=== PATIENT | male | born 1975 | race Caucasian/White ===

== ENCOUNTER 2016-05-17 09:09 | Inpatient (IN) | payer BC ==
--- NOTE | ~2016-05-17 | EEG ---
Electroencephalogram [address] [place]. [address] NAME: MARVEL CHARLES : 71 STATUS : DIS IN PAT#: [id number] AGE: 41 ADM/REG DATE : 05/17/16 MR#: [id number] REPORT SERV DATE: 05/22/16 DICTATED BY: NATHANIEL GOEL DATE: 05/22/16 REPORT STATUS : Draft TRANSCRIBED BY: ALYX DATE: 05/22/16 REQUESTING PHYSICIAN: 1. Emergency room physician. 2. Nathaniel Goel MD. INTERPRETING PHYSICIAN: Nathaniel Goel MD. REASON FOR EEG: Episode of ? syncope, unresponsiveness followed by left-sided weakness. 23 surface electrodes, 10-20 international placement was used. Video monitoring was utilized. Photic stimulation was performed. The background activity consisted of very well organized goysrzub-sk-mvodgl voltage 10-11 cycles per second located in the posterior head regions. This alpha range activity attenuated well with the eye opening maneuvers. No abnormal paroxysmal activity was seen during the study. The patient's radiation monitor showed sinus rhythm, rate of approximately 76 to 80 beats per minute. Photic stimulation did not bring out additional abnormalities. IMPRESSION: THIS IS A NORMAL AWAKE AND DROWSY EEG. CLINICAL CORRELATION IS RECOMMENDED. JAYDE/ALYX Nathaniel Goel MD / [id number] CC: Divine Tierney II, M.D.
--- NOTE | ~2016-05-17 | CN ---
Consultation Report [facility] [address] [place]. [address] NAME: MARVEL CHARLES : 71 STATUS : ADM IN PAT#: [id number] AGE: 41 ADM/REG DATE : 05/17/16 MR#: [id number] REPORT SERV DATE: 05/17/16 DICTATED BY: NATHANIEL GOEL DATE: 05/17/16 REPORT STATUS : Draft TRANSCRIBED BY: MODBessie DATE: 05/17/16 NEUROLOGICAL EVALUATION-CODE STROKE EMERGENCY ROOM DATE OF CONSULTATION: 05/17/2016 REQUESTING PHYSICIAN: Dr. Carranza from emergency room. HISTORY OF PRESENT ILLNESS: This is a 41-year-old, previously healthy male with no prior history of TIA or CVA, who presented to the emergency room with history of two episodes of loss of consciousness, which occurred at 6 o'clock this morning. The patient, as per his , was found slightly confused on the floor of his bathroom. Prior to that, as per the patient's children, who informed their mother the patient had previous episode of falling. The disorientation lasted couple of seconds. The patient was taken to the emergency room. While in the emergency room, it was noted by the emergency room nurse that the patient had difficulty moving his left arm and left leg. The patient denied numbness or tingling involving his face or extremities. Denied history of previous CVA or TIA. There is no history of seizures. The patient has a strong family history of early of his father who of massive heart attack? three years ago. The patient was followed by Cardiology following the episode of his father's for the evaluation of chest discomfort. His workup at that time was negative. The patient's records from indicated he was hospitalized in 2012 for possible prostatitis and history of hemorrhoids. The patient however denied having any history of bleeding. The patient was taken to the CT on an emergency basis. CT scan of the head was normal. CTA of the aortic arch and vasculature in the neck and brain was normal. The patient's NIH stroke scale was 4 with motor dysfunction affecting left arm and left leg. No evidence of speech, sensory deficits, or cerebellar deficits noted. The risks and side effects of the tPA were explained to the patient and the family. The patient's symptoms started at 6 o'clock in the morning; however, his weakness did not develop until he presented to the emergency room. We requested permission from the patient who was conscious, alert, and was able to give informed consent. I requested his permission for tPA use. The side effects which included increased risk of bleeding internally in the brain were explained to the patient. The patient was given a test dose 0.9 mg with no adverse affects, started on infusion of tPA. The EEG was done to rule out presence of seizures or post-seizure changes- postictal changes. On my inspection, the EEG appeared within normal range. The inclusion and exclusion criteria were reviewed prior to offering and considering tPA as a treatment for this patient. MEDICATIONS: None as per patient. ALLERGIES: PENICILLIN. FAMILY HISTORY: As mentioned above. The patient's father at age 47 of a massive heart attack. Consultation Report [id number] [facility] [place]. [address] NAME: MARVEL CHARLES : 71 STATUS : ADM IN [facility]#: [id number] AGE: 41 ADM/REG DATE : 05/17/16 MR#: [id number] REPORT SERV DATE: 05/17/16 DICTATED BY: NATHANIEL GOEL DATE: 05/17/16 REPORT STATUS : Draft TRANSCRIBED BY: ALYX DATE: 05/17/16 REVIEW OF SYSTEMS: The patient denied having recent problems with weakness, numbness difficulty, with his speech, chewing, and swallowing. Denied history of headache or dizziness. Denies history of head trauma. 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 The rest of the review of system was negative. 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 Denied history of smoking or use of alcohol. He is and has several children. PHYSICAL EXAMINATION: VITAL SIGNS: Blood pressure 110/70, pulse was 78, respirations 14, and temperature afebrile. HEAD AND NECK: Showed him to be normocephalic. There was no evidence of trauma. Auscultation of the neck showed no evidence of bruits. EYE: Sclerae were not icteric. Conjunctiva was pink. ENT: Showed slightly small airway, however, the Mallampati 2-3 was the grading. NECK: Supple. There was no Kernig or Brudzinski. Cervical range of motion was not impaired. CHEST: Symmetrical. LUNGS: Clear to auscultation. HEART: Showed regular S1, S2. No S3, S4, or gallops were noted. ABDOMEN: Soft, nontender. There was no organomegaly. EXTREMITIES: Show no clubbing or cyanosis. There was no peripheral edema. Peripheral pulses were normal. SKIN: Clear. No ecchymosis, petechiae, hemorrhages, or abnormal pigmentation noted. NEUROLOGICAL: The patient was alert, oriented to self, time, and place. His speech was fluent. There was no evidence of aphasia or dysarthria. Thought content was appropriate. Mood was appropriate. The patient appeared mildly anxious. No deficits on memory testing, were observed. CRANIAL NERVES: Two through 12. Visual nesbitt to confrontation were intact. FUNDUSCOPIC: Showed no evidence of papilledema, hemorrhages, or exudates. Extraocular movements were full. There was no nystagmus. No limitation of upward or downward gaze was noted. No facial asymmetry was noted on examination. Hearing was intact bilaterally. Lower cranial nerves were intact. Tongue was midline. No atrophy or fibrillations were noted. Palate elevated symmetrically. Sternocleidomastoid muscles appeared normal. The patient however had decreased shoulder shrug on the left. MOTOR: The patient's tone initially appeared flaccid in the left arm and normal in the left leg. After patient received tPA, the tone improved in the left arm. The patient was able to move distal fingers in the left hand. Strength initially was 3/5 in the left arm and 3- /5 in the left leg. Deep tendon reflexes were symmetrical, 1+/2 throughout including ankle jerks. Babinski signs were not elicitable. SENSORY: Showed no deficits on pinprick, light touch, temperature, and vibration. CEREBELLAR: On the left was normal; on the right, difficult to test. The patient however did not have truncal ataxia on sitting. Gait could not be tested at this time. Consultation Report [address] [place]. [address] NAME: MARVEL CHARLES : 71 STATUS : ADM IN [facility]#: [id number] AGE: 41 ADM/REG DATE : 05/17/16 MR#: [id number] REPORT SERV DATE: 05/17/16 DICTATED BY: NATHANIEL GOEL DATE: 05/17/16 REPORT STATUS : Draft TRANSCRIBED BY: MODL DATE: 05/17/16 IMPRESSION: Acute neurological deficit, most likely related to early stroke. The patient has strong family history of massive myocardial infarction at the early age-the patient has no risk factors otherwise for cerebrovascular accident; however, would recommend to proceed with a workup of cerebrovascular accident in the young patient. This workup should include hypercoagulable state, Cardiology evaluation, and transesophageal echo. 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 Follow post tPA orders, monitor for signs of bleeding, repeat imaging studies in 24 hours, start aspirin in 24 hours after the tPA was administered. Start statins now. The patient is able to swallow, continue low-cholesterol diet, lipid profile, and other orders to follow as per stroke protocol. Monitor for recurrent cardiac arrhythmias. Additional orders will follow according to the patient's progress and imaging studies. Thank you for allowing us to see participate in this patient's care. The patient will be provided with a stroke education and family counseling if needed. JAYDE/ALYX Nathaniel Goel MD / [id number] CC: Divine Boland II, M.D.
--- NOTE | ~2016-05-17 | DS ---
Discharge Summary [facility] [address] [place]. [address] NAME: MARVEL CHARLES : 71 STATUS : DIS IN PAT#: [id number] AGE: 41 ADM/REG DATE : 05/17/16 MR#: [id number] REPORT SERV DATE: 05/20/16 DICTATED BY: SALINAS GOINS DATE: 05/19/16 REPORT STATUS : Draft TRANSCRIBED BY: MODL DATE: 05/19/16 ADMISSION DATE: 05/17/2016 DISCHARGE DATE: 05/19/2016 REASON FOR ADMISSION: This is a 41-year-old patient brought into the emergency room, that had two episodes of loss of consciousness which occurred around 5 o'clock in the morning. The patient was found by his on the bathroom floor and was slightly confused. The patient had no recall of what he was doing in the bathroom or what had happened. He apparently had loss of consciousness. The disorientation lasted a couple of seconds. The patient was brought to the emergency room. In the emergency room, the ER nurse noticed that patient was having difficulty moving his left arm and left leg. The patient denied any numbness or tingling involving his face or extremities. Denied any previous history of CVA or TIA but did have a strong family history of early of his father who of a massive heart attack about three years ago. This was immediately after hospitalization for evaluation of his chest discomfort so family is hypersensitive to hospitalizations and the patient's current episodes due to the previous history that their father had with poor hospitalization. DISCHARGE DIAGNOSES: 1. Left-sided weakness. 2. Syncope. 3. Hypotension secondary to pain medications. 4. Left shoulder pain, possible rotator cuff injury. HOSPITAL COURSE: 1. Left-sided weakness. Because of the patient's symptoms and his age and health, he was deemed appropriate for tPA therapy as he was believed to be in early stages of stroke. He did receive tPA therapy, tolerated without side effects. He would receive CT scan of the brain in the ER, which would show no acute abnormality. He would receive MRI of the brain, which would show no acute CVA or other intracranial pathology. He would receive a CTA of the neck which would show normal pre and post-contrast CT of brain, normal CTA of brain, normal CTA of neck. He would receive also MRI of cervical spine which would show minimal degenerative changes in the cervical spine with mild annular bulges at C2-C3, C5-C6, C6-C7, and C7 to T1 but no significant spinal canal or neural foraminal narrowing appreciated. He would also receive an echocardiogram which would show normal left ventricular systolic function with EF of 50% to 55%, normal right ventricular size and systolic function. No valvular regurg or stenosis. Negative bubble study. The EKG which showed no significant change when compared to previous EKG in April 2016 normal sinus rhythm. He also had negative cardiac enzymes. After receiving tPA therapy, the patient's left leg weakness resolved, and it became apparent that the patient had a left shoulder injury as he was having a lot of pain from his left shoulder. He was still unable to lift his left arm but that was secondary to pain. He is able to move the arm but has limited range of motion with it. I am suspicious that perhaps he has rotator cuff injury. This occurred after his fall in the bathroom. X-ray of the left shoulder would be negative for any fracture or acute pathology. The patient did have episode of hypotension last night getting down to 80s over 40s but he Discharge Summary [address] [address] NAME: MARVEL CHARLES : 71 STATUS : DIS IN PAT#: [id number] AGE: 41 ADM/REG DATE : 05/17/16 MR#: [id number] REPORT SERV DATE: 05/20/16 DICTATED BY: SALINAS GOINS DATE: 05/19/16 REPORT STATUS : Draft TRANSCRIBED BY: ALYX DATE: 05/19/16 had received IV morphine as well as oral Percocet before the hypotension episode and it has since resolved. Orthostatic blood pressures checked by myself 106/57 sitting and 112/64 standing. The patient able to ambulate in the room as I witnessed without difficulty. No current symptoms of left leg weakness, just the current symptoms of left shoulder pain. Due to the past medical experience and hospitalization experience with his father the family as I previously mentioned is hypersensitive to hospital stays and wrong diagnoses, very concerned about the etiology of his symptoms. I had a long discussion with the family. At one point, the son had asked all the family except for his to leave the room because they were being very emotional and interrupting our conversation. I had long discussion with the and the patient. He understood that all of his imaging was negative, and he had a negative stroke workup. We agreed that it was reasonable given his family history of severe heart disease, that we leave him on the statin that we started him on here at the hospital as well as baby aspirin. 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 I advised him to probably take a break from that for a little while, see if he has any repeat episodes before returning to driving the kids and back to full schedule at work. We hypothesized that the patient possibly had a vasovagal response to being on the commode and passed out in the bathroom. The fall would explain shoulder injury and possibly stress as well as perhaps some fear after being confused and having some difficulty moving his left arm lead to some exaggeration with his left leg weakness. The patient admitted this himself without my prompting so he understood that he had a negative cardiac and stroke workup, and he was comfortable with discharging home despite the family's concerns. I urged him to return to the emergency room immediately if he had any repeat episodes similar to this. We will have him follow up with his primary care next week. DISCHARGE CONDITION: Stable. DISCHARGE MEDICATIONS: 1. Multivitamin. 2. Lipitor 40 mg p.o. at bedtime. 3. Aspirin 81 mg p.o. daily. 4. Dilaudid 2 mg q.4 hours p.r.n. 5. Percocet 5/325 mg one tab q.6 hours p.r.n. 6. Ibuprofen 800 mg q.6 hours x3 days then p.r.n. DISCHARGE PLAN: The patient is discharged home. Appointment to be made with Dr. Tushar Gibson, Orthopedic Surgery at [facility] this next week for followup about shoulder pain and follow up with his primary care in the next week as well. He has seen Dr. Gibson in the past. He has been given p.r.n. pain medicine and ibuprofen to help with his shoulder pain until he is able to follow up with Dr. Gibson. TDR/MODL [place] Discharge Summary [facility] [address] [place]. [address] NAME: MARVEL CHARLES : 71 STATUS : DIS IN PAT#: [id number] AGE: 41 ADM/REG DATE : 05/17/16 MR#: [id number] REPORT SERV DATE: 05/20/16 DICTATED BY: SALINAS GOINS DATE: 05/19/16 REPORT STATUS : Draft TRANSCRIBED BY: MODL DATE: 05/19/16 MITALI Goins / [id number] CC: Divine Tierney II, M.D. Chad C Smalley, M.D. Roza K. Adamczyk, MD
--- NOTE | ~2016-05-17 | CN ---
Consultation Report [facility] [address] [place]. [address] NAME: MARVEL CHARLES : 71 STATUS : ADM IN PAT#: [id number] AGE: 41 ADM/REG DATE : 05/17/16 MR#: [id number] REPORT SERV DATE: 05/17/16 DICTATED BY: SEAMUS MEJIA DATE: 05/17/16 REPORT STATUS : Draft TRANSCRIBED BY: MODL DATE: 05/17/16 CARDIOLOGY CONSULTATION DATE OF CONSULTATION: 05/17/2016 HISTORY OF PRESENT ILLNESS: The patient is a 41-year-old white male, who was brought to the emergency department this morning via EMS after he was found on the floor in the bathroom by his . She reports hearing noise and went into the bathroom to find him unconscious on the floor. He aroused fairly quickly, but was disoriented and then had a second syncopal episode before EMS arrived. The patient himself does not recall any details of the events and does not have any recollection of any preceding symptoms. He was evaluated in the emergency department and a code stroke was called. Neurology deemed that he was a good candidate for tPA and this was administered just before noon today. Currently, he still has some residual left-sided weakness, but this has improved. No other focal deficits are noted. The patient reports a brief episode of mild chest pressure this morning while riding in the ambulance, and this resolved spontaneously. He denies any history of chest pain, palpitations, or shortness of breath recently. He does report a history of increased fatigue over the past 3 to 4 weeks. Otherwise, the patient reports being in generally good health. He has a family history of early coronary disease, but no cardiac history personally. He had a cardiac catheterization by Dr. Mehta on 01/22/2013, which showed normal coronary arteries and a normal left ventricular ejection fraction of 55% to 60%. He also had a Holter monitor done around that same time, which was unremarkable. Currently, the patient is resting in bed awake and alert with his and daughter at the bedside. He is currently comfortable and in no distress. PAST MEDICAL HISTORY: Significant for history of prostatitis formally treated by Dr. Boyd in 2002, as well as degenerative joint disease, and a previous GI bleed. No history of hypertension or hyperlipidemia or any documented cardiac arrhythmia. FAMILY HISTORY: Positive for early coronary disease. His father and paternal grandfather both of MIs at around the age of 61. SOCIAL HISTORY: The patient denies any history of tobacco or illicit drug use. REVIEW OF SYSTEMS: The patient denies cough, wheeze, sputum production, diarrhea, or dysuria. No history of motor or sensory deficits prior to this morning. He does complain of some fatigue for the past few weeks, but denies any chest discomfort, palpitations, or shortness of breath. PHYSICAL EXAMINATION: VITAL SIGNS: Blood pressure is 107/71, heart rate is 65 and regular, and respirations 14 and unlabored. GENERAL APPEARANCE: The patient is a well-developed, well-nourished white male, in no acute Consultation Report [address] [address] NAME: MARVEL CHARLES : 71 STATUS : ADM IN [facility]#: [id number] AGE: 41 ADM/REG DATE : 05/17/16 MR#: [id number] REPORT SERV DATE: 05/17/16 DICTATED BY: SEAMUS MEJIA DATE: 05/17/16 REPORT STATUS : Draft TRANSCRIBED BY: ALYX DATE: 05/17/16 distress. HEENT: Unremarkable. NECK: Shows no jugular venous distention with good carotid upstroke. CHEST: Clear to auscultation bilaterally. CARDIOVASCULAR: PMI is nondisplaced. S1 is normal. S2 is narrowly split. No gallops or murmurs are appreciated. ABDOMEN: Soft and nontender with normal bowel sounds. EXTREMITIES: Show no cyanosis, clubbing, or edema. NEUROLOGICAL: The patient does have a residual left-sided weakness, which is worse in his left arm. He is unable to raise his left arm off the bed, but can hold it after it is elevated. He is able to move his left leg, but cannot really raise it off the bed. No other focal deficits are noted. PSYCHIATRIC: The patient is alert and oriented x4 with appropriate affect. IMPRESSION: 1. Cryptogenic stroke. 2. Brief episode of chest pain this morning, which has since resolved. PLAN: 1. Await results of echo with bubble study. 2. I discussed placing an implantable loop recorder with the patient to monitor for cardiac arrhythmias as a possible embolic source for stroke. I will discuss with Dr. Mehta as far as the timing of this implant. I expect the patient will most likely remain in the hospital over the weekend and we may plan to do this early next week. Otherwise, it could be arranged as an outpatient. Thank you very much for this consultation. We will continue to follow the patient with you. CARMEN/ALYX Seamus Mejia NP / [id number] CC: Divine Boland II, M.D. Steven Stubblefield, M.D., F.A.C.C.
--- NOTE | ~2016-05-17 | HP ---
History And Physical [id number] [place] [place]. [address] NAME: MARVEL CHARLES : 71 STATUS : ADM IN [facility]#: [id number] AGE: 41 ADM/REG DATE : 05/17/16 MR#: [id number] REPORT SERV DATE: 05/17/16 DICTATED BY: CHANG FELDMAN DATE: 05/17/16 REPORT STATUS : Draft TRANSCRIBED BY: MODBessie DATE: 05/17/16 DATE OF ADMISSION: 05/17/2016 HISTORY OF PRESENT ILLNESS: This is a 41-year-old patient that was brought to the emergency room early this morning after he was found confused on the floor of his bathroom. The patient himself does not exactly remember everything that happened, but does complain of tingling all over his body and what he describes is almost a near syncopal episode. The patient was evaluated in the emergency room and developed left-sided weakness of his arm and his leg. Code stroke was called. The patient was evaluated by Neurology and was deemed a suitable candidate for tPA. CT scan of the head was normal. CTA of the aortic arch vasculature in the neck and the brain was also normal. Risks and benefits of tPA were discussed with the patient by Neurology, and then tPA was given and just completed around 11 o'clock this morning. The patient is currently in the CCU. He is alert and awake. He still has some residual left-sided weakness, left arm greater than left leg, but otherwise is stable. The patient is allergic to penicillin to which he develops a rash, and medications at home are Theragran-M and Rhinocort. The patient takes no wmsg-aaq-milvbgl medication or herbal medications. PAST MEDICAL HISTORY: 1. Significant for upper GI bleed for which the patient was admitted in May of 2013, had a colonoscopy that revealed hemorrhoids as the source of bleeding. Dr. Palacios was the primary care md. 2. Degenerative joint disease. 3. History of urinary tract infection and prostatitis. The patient was followed by Dr. Boyd for acute prostatitis backing in 2002. FAMILY HISTORY: Significant for myocardial infarct in his father at an early age. The patient has been followed by Dr. Mehta and has not exhibited any problems with coronary artery disease. 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 He does not have any history of smoking or alcohol abuse. He is and has several children. REVIEW OF SYSTEMS: A 12-point review of system was done and is as per history of present illness. PHYSICAL EXAMINATION: VITAL SIGNS: His heart rate is 82, blood pressure 114/77, respiratory rate is 23. He is afebrile. GENERAL: He is alert, awake, and oriented. He has no facial droop. SKIN: Warm and dry. HEENT: Head is atraumatic and normocephalic. Pupils are equal, round, and reactive to light and accommodation. Extraocular eye movements are intact. Sclerae anicteric. Conjunctivae pink. Nasal mucosa within normal limits. Oral mucosa is moist. Tongue is midline. NECK: Supple without JVD, lymphadenopathy, or thyromegaly. LUNGS: Clear to auscultation. History And Physical [address] [address] NAME: MARVEL CHARLES : 71 STATUS : ADM IN [facility]#: [id number] AGE: 41 ADM/REG DATE : 05/17/16 MR#: [id number] REPORT SERV DATE: 05/17/16 DICTATED BY: CHANG FELDMAN DATE: 05/17/16 REPORT STATUS : Draft TRANSCRIBED BY: ALYX DATE: 05/17/16 CARDIAC: Reveals a regular rate and rhythm. No significant murmurs heard. There are no carotid bruits heard. ABDOMEN: Soft, nondistended. Bowel sounds are present, but diminished. No organosplenomegaly is found and no pain is elicited to deep palpation. RECTAL AND GENITAL: Deferred. EXTREMITIES: Without cyanosis, clubbing, or edema. Pulses are palpable and symmetrical. NEUROLOGIC: Cranial nerves 2 through 12 are grossly intact. What is notable is the patient still has some residual weakness of his left arm greater than his left leg. I would say that the strength in his left arm is about 3 to 4/5. It is 4/5 in his left leg. DIAGNOSTIC DATA: Chest x-ray does not show any evidence of pulmonary vascular congestion or infiltrates. CTA of the neck and brain shows no abnormalities. Electrolytes: Sodium 142, potassium 4.2, chloride 105, bicarb 28, BUN 18, creatinine 1.04, and glucose 96. LFTs are within normal limits except for slightly elevated ALT at 70, AST of 41. Lipase is within normal limits. Troponin is less than 0.02. White cell count is 8.8, hemoglobin 16, hematocrit 46, and platelet count 204,000. PTT and PT/INR are within normal limits. ASSESSMENT AND PLAN: This is a 41-year-old patient, who has never had a cerebrovascular accident before and there is no strong family history of cerebrovascular accident. The patient was evaluated and was thought to be a suitable candidate for tPA which he received. He is currently in observation in the Intensive Care Unit for 24 hours as per protocol. He will have frequent neurologic checks. He will complete further blood work throughout hypercoagulable state. TSH, echocardiogram, EEG, and MRI as per Neurology. Blood pressure is stable. The patient has no difficulty with dysphagia and is able to eat. Dr. Mehta who is the patient's account development associate has been notified of the patient's admission and will follow as well. We will follow the patient with you. /ALYX Chang Feldman M.D. / [id number] CC: Divine Boland II, M.D.
[~2016-05-17 09:09] MED LIST: *DENIES; CIP5 PO; LORTAB 5 PO; MOBIC15 MG PO; MOBIC7.5 PO; MULTIPLE VIT PO; NORCO1 TA1 PO
[2016-05-17 09:27] LABS: BASOPHILS 0.5 %; BASOPHILS ABSOLUTE 0.04 10/3/uL (0.0-0.16); EOSINOPHILS 0.5 %; EOSINOPHILS ABSOLUTE 0.04 10/3/uL (0.0-0.53); ER CBC TAT 0 Hrs 07 Mins; HEMOGLOBIN 16.6 g/dL (13.6-17.8); IMMATURE GRANULOCYTES 0.6 %; IMMATURE GRANULOCYTES ABSOLUTE 0.05 10/3/uL (0.0-0.11); LYMPHOCYTES 20.2 %; LYMPHOCYTES ABSOLUTE 1.78 10/3/uL (0.67-4.30); MANUAL DIFF NO %; MEAN CORPUS HGB CONC 36.1 g/dL (32.0-36.0); MEAN CORPUSCULAR HEMOGLOB 31.3 pg (26.0-34.0); MEAN CORPUSCULAR VOLUME 86.8 fL (80-100); MEAN PLATELET VOLUME 9.8 fL (9.2-13.0); MONOCYTES 9.1 %; NEUTROPHILS 69.1 %; NEUTROPHILS ABSOLUTE 6.09 10/3/uL (2.02-8.40); PLATELET COUNT 204 10/3/uL (150-400); RBC DISTRIBUTION WIDTH 12.3 % (12.0-16.0); WHITE BLOOD CELLS 8.8 10/3/uL (4.5-10.5)
[2016-05-17 09:32] LABS: INTERNATIONAL NORMAL RATI 1.1 UNITS (-); PARTIAL THROMBO TIME 29.7 SEC (22.5-37.2); PROTIME (NOT ORD) 13.8 SEC (12.0-14.5)
[2016-05-17 09:41] LABS: ALKALINE PHOSPHATASE 82 U/L (45-117); CALCIUM, SERUM 8.7 MG/DL (8.5-10.4); CHEST PAIN PROFILE TAT 0 Hrs 21 Mins; CHLORIDE, SERUM 105 MMOL/L (96-112); CO2 (CARBON DIOXIDE) 28 MMOL/L (24-34); CREATININE 1.04 MG/DL (0.70-1.30); DIRECT BILIRUBIN 0.2 MG/DL (0.0-0.4); GFR AFRICAN AMERICAN 101 ML/MIN (>=60); GFR NON AFRICAN AMERICAN 88 ML/MIN (>=60); GLUCOSE, SERUM 96 MG/DL (60-99); INDIRECT BILIRUBIN(NOT ORDER) 0.5 MG/DL (0.1-0.9); POTASSIUM, SERUM 4.2 MMOL/L (3.5-5.3); SGOT(AST) 41 U/L (5-40); SGPT(ALT) 70 U/L (5-65); SODIUM, SERUM 142 MMOL/L (135-148); TOTAL BILIRUBIN 0.7 MG/DL (0-1.2); TOTAL PROTEIN 7.4 G/DL (6.0-8.5); TROPONIN I <0.02 NG/ML (<0.05)
[2016-05-17 09:42] LABS: BUN (BLOOD UREA NITROGEN) 18 MG/DL (6-23)
[2016-05-17] MEDS ORDERED: THERGRANM PO (09:56)
[2016-05-17] MEDS ORDERED: RHINOCORT INH (09:57)
[2016-05-17 14:25] LABS: D-DIMER QUANTITATIVE 1.08 ug/mLFEU (< 0.50)
[2016-05-17 14:27] LABS: CK-MB 1.9 NG/ML; CPK 171 U/L (0-200)
[2016-05-17 14:28] LABS: ACETAMINOPHEN LEVEL (TYLENOL) < 2.0 MCG/ML (10.0-20.0); ALCOHOL < 10 MG/DL (0); SALICYLATE < 1.7 MG/DL (-)
[2016-05-17 18:54] LABS: ASCORBIC ACID (UR NOT ORDER) NEG (NEG); BILIRUBIN, URINE NEGATIVE (NEG); ER URINALYSIS TAT 0 Hrs 35 Mins; KETONE, URINE NEGATIVE (NEG); LEUKOCYTE ESTERASE(NOT OR NEG (NEG); NITRITE (URINE) NEG (NEG); WBC (NOT ORDERED) (RFLEX) 1 (0-5)
[2016-05-17 18:54] LABS: CK-MB 1.6 NG/ML; CPK 153 U/L (0-200); TROPONIN I <0.02 NG/ML (<0.05)
[2016-05-17 19:16] LABS: BENZODIAZEPINES (NOT ORD) NEG (NEG); PHENCYCLIDINE(PCP) NEG (NEG)
[2016-05-17 19:17] LABS: AMPHETAMINES (NOT ORD) NEG (NEG); BARBITURATES (NOT ORDERED NEG (NEG); CANNABINOIDS (THC) NEG (NEG); COCAINE (NOT ORDERED) NEG (NEG); OPIATES NEG (NEG); TRICYCLICS NEG (NEG)
[2016-05-18 05:13] LABS: BASOPHILS 0.6 %; BASOPHILS ABSOLUTE 0.05 10/3/uL (0.0-0.16); EOSINOPHILS 1.4 %; EOSINOPHILS ABSOLUTE 0.11 10/3/uL (0.0-0.53); HEMATOCRIT 43.9 % (40.0-51.0); HEMOGLOBIN 15.4 g/dL (13.6-17.8); IMMATURE GRANULOCYTES 0.4 %; IMMATURE GRANULOCYTES ABSOLUTE 0.03 10/3/uL (0.0-0.11); LYMPHOCYTES 28.7 %; LYMPHOCYTES ABSOLUTE 2.23 10/3/uL (0.67-4.30); MANUAL DIFF NO %; MEAN CORPUS HGB CONC 35.1 g/dL (32.0-36.0); MEAN CORPUSCULAR HEMOGLOB 30.7 pg (26.0-34.0); MEAN CORPUSCULAR VOLUME 87.6 fL (80-100); MEAN PLATELET VOLUME 10.1 fL (9.2-13.0); MONOCYTES 8.1 %; MONOCYTES ABSOLUTE 0.63 10/3/uL (0.21-1.20); NEUTROPHILS 60.8 %; NEUTROPHILS ABSOLUTE 4.72 10/3/uL (2.02-8.40); PLATELET COUNT 205 10/3/uL (150-400); RBC DISTRIBUTION WIDTH 12.4 % (12.0-16.0); RED CELL COUNT 5.01 10/6/uL (4.7-6.1); WHITE BLOOD CELLS 7.8 10/3/uL (4.5-10.5)
[2016-05-18 05:17] LABS: A/G RATIO 1.2 (0.7-1.9); ALBUMIN 3.5 G/DL (3.5-5.0); ALKALINE PHOSPHATASE 72 U/L (45-117); BUN (BLOOD UREA NITROGEN) 16 MG/DL (6-23); CALCIUM, SERUM 8.7 MG/DL (8.5-10.4); CHLORIDE, SERUM 107 MMOL/L (96-112); CO2 (CARBON DIOXIDE) 26 MMOL/L (24-34); CREATININE 0.89 MG/DL (0.70-1.30); GFR AFRICAN AMERICAN 121 ML/MIN (>=60); GFR NON AFRICAN AMERICAN 105 ML/MIN (>=60); GLUCOSE, SERUM 90 MG/DL (60-99); POTASSIUM, SERUM 3.7 MMOL/L (3.5-5.3); SGOT(AST) 24 U/L (5-40); SGPT(ALT) 55 U/L (5-65); SODIUM, SERUM 142 MMOL/L (135-148); TOTAL BILIRUBIN 0.5 MG/DL (0-1.2); TOTAL PROTEIN 6.5 G/DL (6.0-8.5); TROPONIN I <0.02 NG/ML (<0.05)
[2016-05-18 05:19] LABS: CK-MB 1.4 NG/ML; CPK 131 U/L (0-200)
[2016-05-19 04:15] LABS: BASOPHILS 0.6 %; BASOPHILS ABSOLUTE 0.04 10/3/uL (0.0-0.16); EOSINOPHILS 1.8 %; EOSINOPHILS ABSOLUTE 0.12 10/3/uL (0.0-0.53); HEMATOCRIT 39.6 % (40.0-51.0); HEMOGLOBIN 13.9 g/dL (13.6-17.8); IMMATURE GRANULOCYTES 0.5 %; IMMATURE GRANULOCYTES ABSOLUTE 0.03 10/3/uL (0.0-0.11); LYMPHOCYTES ABSOLUTE 2.31 10/3/uL (0.67-4.30); MEAN CORPUS HGB CONC 35.1 g/dL (32.0-36.0); MEAN CORPUSCULAR HEMOGLOB 30.7 pg (26.0-34.0); MEAN CORPUSCULAR VOLUME 87.4 fL (80-100); MEAN PLATELET VOLUME 10.3 fL (9.2-13.0); MONOCYTES 7.6 %; NEUTROPHILS 54.5 %; PLATELET COUNT 201 10/3/uL (150-400); RBC DISTRIBUTION WIDTH 12.5 % (12.0-16.0); RED CELL COUNT 4.53 10/6/uL (4.7-6.1); WHITE BLOOD CELLS 6.6 10/3/uL (4.5-10.5)
[2016-05-19 04:16] LABS: MANUAL DIFF NO %
[2016-05-19 04:24] LABS: BUN (BLOOD UREA NITROGEN) 16 MG/DL (6-23); CALCIUM, SERUM 8.2 MG/DL (8.5-10.4); CHLORIDE, SERUM 105 MMOL/L (96-112); CO2 (CARBON DIOXIDE) 26 MMOL/L (24-34); CREATININE 0.92 MG/DL (0.70-1.30); GFR AFRICAN AMERICAN 118 ML/MIN (>=60); GFR NON AFRICAN AMERICAN 102 ML/MIN (>=60); POTASSIUM, SERUM 3.7 MMOL/L (3.5-5.3); SODIUM, SERUM 141 MMOL/L (135-148)
[2016-05-19 04:25] LABS: GLUCOSE, SERUM 124 MG/DL (60-99); PHOSPHORUS, SERUM 3.8 MG/DL (2.5-4.5)
[2016-05-19] MEDS ORDERED: LIPITOR40 (16:32)
[2016-05-19] MEDS ORDERED: LIPITOR40 PO (16:35)
[2016-05-19] MEDS ORDERED: ASAB PO (16:37)
[2016-05-19] MEDS ORDERED: DIL2TAB PO (16:37)
[2016-05-19] MEDS ORDERED: PCET PO (16:38)
[2016-05-19] MEDS ORDERED: IBU800 PO (16:40)
[2016-05-20 14:55] LABS: PROTEIN C ACTIVITY 153 % (70-145); PROTEIN S ACTIVITY 112 % (69-161)
== END 2016-05-19 21:21 | disposition home or self-care (01) | DRG 62 ==
LOC: ER 09:09 → CCU 10:48 → 7NO 05-18 16:46
PROVIDERS: Internal Medicine; Internal Medicine Pulmonary Disease; Physician Assistant; Radiology Radiation Oncology
DX: I63.9 Cerebral infarction, unspecified (principal); G81.94 Hemiplegia, unspecified affecting left nondominant side; W18.30XA Fall on same level, unspecified, initial encounter; S46.012A Strain of muscle(s) and tendon(s) of the rotator cuff of left shoulder, initial encounter; M19.90 Unspecified osteoarthritis, unspecified site; R07.89 Other chest pain; I95.2 Hypotension due to drugs; T40.2X5A Adverse effect of other opioids, initial encounter; Z88.0 Allergy status to penicillin; Z87.440 Personal history of urinary (tract) infections
CPT/HCPCS: 36415; 70450; 70496; 70498; 70551-52; 71010; 72141; 73030-LT; 80048; 80053; 80076; 80305; 80307; 81001; 81240; 81241; 82550; 82553; 82962; 83036; 83690; 83735; 84100; 84484; 85025; 85300; 85303; 85306; 85379; 85610; 85730; 86146; 86146-59; 86147; 86850; 86900; 86901; 87641; 93005; 95816; 96365; 99291; A9270-GY; C8929; J1170; J2997; Q9957; Q9967

== ENCOUNTER 2016-06-16 23:49 | Inpatient (IN) | payer BC ==
--- NOTE | ~2016-06-16 | DS ---
Discharge Summary [facility] [address] [place]. [address] NAME: MARVEL CHARLES : 71 STATUS : DIS IN PAT#: [id number] AGE: 41 ADM/REG DATE : 06/16/16 MR#: [id number] REPORT SERV DATE: 06/20/16 DICTATED BY: REY RAMOS DATE: 06/20/16 REPORT STATUS : Draft TRANSCRIBED BY: MODL DATE: 06/20/16 ADMISSION DATE: 06/16/2016 DISCHARGE DATE: 06/20/2016 DIAGNOSES ON ADMISSION: 1. Syncope. 2. Headaches. 3. Degenerative joint disease. 4. Azotemia. 5. Abnormal cortisol study. 6. Questionable obstructive sleep apnea. 7. Recently abnormal liver enzymes. DIAGNOSES ON DISCHARGE: 1. No evidence of syncopal episode while inpatient. 2. Headache, improved, possible cervical mild degenerative joint disease. Negative neurology workup and negative myelography. 3. Mild azotemia present on admission, resolved. 4. Liver function tests, normal this admission. 5. Normal cortisol stimulation test. No evidence of any abnormality in the cortisol. 6. Possible obstructive sleep apnea. Sleep study recommended as outpatient to be arranged per primary care physician. 7. Vitamin D deficiency, on replacement. 8. Status post loop recorder insertion to rule out any arrhythmias. IMAGING STUDIES DONE DURING THIS HOSPITALIZATION: 1. MRI of the brain was normal on 06/18/2016. MRA of the head and neck: No significant stenosis. No any blood flow restrictions. 2. Whole-body myelography, complete spinal canal: No evidence of any abnormal leakage, nothing to suspect chronic CSF leakage. There are several small herniations occurring at C5-C6 and C6-C7, although these are small, they may be irritating the thecal sac and may be responsible for a portion of the patient's headache. There are some osteophytic changes in the thoracic spine of T7-8, T8-T9, and T9-T10. Normal opening pressure. No evidence of any leakage. 3. Electroencephalography was unremarkable as well. LAB TEST DONE THIS ADMISSION: RPR was negative. IZABEL was negative. Testosterone level was 196. Cortisol stimulation test: Baseline cortisol was 11.8 and after stimulation, increased to 24.5 in 30 minutes and in one hour was 27.4. Vitamin D level was 22. HIV was negative. Liver enzymes were: ALT was 35, alkaline phosphatase 63, AST was 18, LDH 202. TSH was 4.12. Free T4 of 1.21. CONSULTANTS ON THE CASE: 1. Pool Nurse, Dr. Mehta. Discharge Summary [address] [place]. [address] NAME: MARVEL CHARLES : 71 STATUS : DIS IN PAT#: [id number] AGE: 41 ADM/REG DATE : 06/16/16 MR#: [id number] REPORT SERV DATE: 06/20/16 DICTATED BY: REY RAMOS DATE: 06/20/16 REPORT STATUS : Draft TRANSCRIBED BY: ALYX DATE: 06/20/16 2. Neurology, Dr. Watt with Terell Cihlel, nurse practitioner. HISTORY OF PRESENT ILLNESS: Per dictation of Dr. Morrison on 06/16/2016. HOSPITAL COURSE: Briefly, patient was admitted to the hospital. He had gentle IV fluid hydration, which was subsequently discontinued. He had periodical headache, but did not have a syncopal episode. His orthostatics were checked and he was not orthostatic. His blood pressure on lying was 117/62, on standing was 109/71, and on sitting was 108/69 and then second time, it was checked, it was 120/69 on lying, 118/77 on sitting, and 120/74 standing. Heart rate was 60, 69, and 78 respectively. Patient had comprehensive evaluation during this hospitalization as well as he had a loop recorder insertion, which was done by Dr. Mehta to rule out any arrhythmias as well as he had a stress test during this hospitalization, which was negative for any ischemia. Ejection fraction was more than 60% and then he had a myelography done per recommendation of Neurology, Dr. Watt, and nurse practitioner, Terell Chilel, and everything was negative. There is a small amount of cervical disease on the myelography, so Terell Chilel recommended to use nonsteroidals as needed for headache, but I emphasized to the patient and to his that he should not use too much nonsteroidals because it can cause stomach ulcers and other complications, so use only small dose and use only with food. Also, we recommended to have sleep apnea study, outpatient polysomnography on the patient and also vitamin D2 at 50,000 units weekly for four weeks was recommended, and then Dr. Gonzales continued replacement in the lower dose. Regarding low testosterone level, he needs to discuss with Dr. Gonzales regarding potential side effects of testosterone therapy. This was discussed with the patient as well. The patient was discharged in stable condition. Continue his home baby aspirin. Continue his multivitamins and prescription was given for vitamin D2 50,000 units weekly for four weeks. Follow up with Dr. Mehta in one to two weeks. Follow up with Dr. Gonzales next week. I spent 45 minutes on discharge. The patient was discharged in stable condition. Everything was discussed with the patient and his . MG/MODL Rey Ramos M.D. / [id number] CC: Rey Ramos M.D. Discharge Summary [address] [address] NAME: MARVEL CHARLES : 71 STATUS : DIS IN PAT#: [id number] AGE: 41 ADM/REG DATE : 06/16/16 MR#: [id number] REPORT SERV DATE: 06/20/16 DICTATED BY: REY RAMOS DATE: 06/20/16 REPORT STATUS : Draft TRANSCRIBED BY: MODBessie DATE: 06/20/16 Divine Hernandez II, [facility] James Mehta M.D., F.A.C.C. Louie Watt MD
--- NOTE | ~2016-06-16 | CN ---
Consultation Report [facility] [address] [place]. [address] NAME: MARVEL CHARLES : 71 STATUS : ADM Balbir PAT#: [id number] AGE: 41 ADM/REG DATE : 06/16/16 MR#: [id number] REPORT SERV DATE: 06/18/16 DICTATED BY: SEAMUS MEJIA DATE: 06/18/16 REPORT STATUS : Draft TRANSCRIBED BY: MODL DATE: 06/18/16 CARDIOLOGY CONSULTATION DATE OF CONSULTATION: 06/18/2016 HISTORY OF PRESENT ILLNESS: The patient is a 41-year-old white male, who presented after a syncopal episode two days ago. The patient states that he did not feel well and was a little lightheaded and apparently went downstairs to sit on the couch, when he felt himself falling and does not remember anything after that until waking up a few seconds later. His was present and reported that he was unconscious for less than a minute. He was slightly disoriented when he was awakened, but aroused fairly quickly without any extended disorientation or altered mental status. He denies any preceding chest pain, shortness of breath, or palpitations. He does complain of severe fatigue over the past two months and states that he just feels exhausted after coming home from work and usually goes straight to bed, sometimes as early as 5 p.m. The patient did have one other previous syncopal episode back in April, and when he awakened, he had severe left-sided weakness and was felt to have had an early stroke. He received tPA and had resolution of his neurological symptoms at that time. However, he has continued to feel severely fatigued since that time. No other complaints, although he did have a headache yesterday after his syncope and collapse. PAST MEDICAL HISTORY: Significant for remote Huslia spotted fever at the age of 17 as well as degenerative disk disease and previous GI bleed in 2013 as well as a history of prostatitis and UTIs. Seen in the past by Dr. Trent. FAMILY HISTORY: Positive for early coronary artery disease, and the patient's father of a massive CT at the age of 61. His paternal grandfather had an CT at the age of 52 with subsequent congestive heart failure and arrhythmias. He also reports of multiple other family members with coronary artery disease on his father's side of the family. SOCIAL HISTORY: The patient is , with children. He is a high climber and denies any smoking, alcohol, or illicit drug use. REVIEW OF SYSTEMS: The patient denies nausea, vomiting, diarrhea, or dysuria. No recent cough, fever, chills, or sputum production. He denies any chest pain, palpitations, or dyspnea on exertion. He does complain of significant fatigue that seems to be worse after physical exertion. PHYSICAL EXAMINATION: VITAL SIGNS: Blood pressure is 108/69, heart rate 64 and regular, respirations are 16 and unlabored, and the patient is afebrile. GENERAL APPEARANCE: The patient is a well-developed, well-nourished white male, in no distress. HEENT: Unremarkable. NECK: Shows no jugular venous distention with good carotid upstroke. Consultation Report [address] [place]. [address] NAME: MARVEL CHARLES : 71 STATUS : ADM Balbir PAT#: [id number] AGE: 41 ADM/REG DATE : 06/16/16 MR#: [id number] REPORT SERV DATE: 06/18/16 DICTATED BY: SEAMUS MEJIA DATE: 06/18/16 REPORT STATUS : Draft TRANSCRIBED BY: ALYX DATE: 06/18/16 CHEST: Clear to auscultation bilaterally. CARDIOVASCULAR: PMI is nondisplaced. S1 is normal. S2 is narrowly split. No murmurs, gallops, or rubs are appreciated. ABDOMEN: Soft and nontender with normal bowel sounds. EXTREMITIES: Showed no cyanosis, clubbing, or edema. SKIN: Warm and dry with no pallor or icterus. NEURO/PSYCH: The patient is alert and oriented x3 with appropriate affect. No focal neuro deficits are noted. LABORATORY AND DIAGNOSTIC DATA: EKG shows normal sinus rhythm and a rate of 78. Chemistry panel and CBC are unremarkable. Troponin has been negative x2. The patient has had an extensive workup by Neurology including an EEG as well as multiple MRIs/MRAs. So far, the workup has been unremarkable. The patient had an unremarkable echo with bubble study on his recent previous admission. IMPRESSION: 1. Syncope of unclear etiology. 2. Persistent fatigue. 3. Previous transient ischemic attack versus cerebrovascular accident, treated with tPA. 4. Significant family history of early coronary artery disease. PLAN: 1. We will order a nuclear stress test to rule out coronary ischemia. 2. Loop recorder insertion to evaluate for possible arrhythmias. The patient had actually been planned to have this done, but had not made it to his followup appointment with us, yet following his previous admission. Thank you very much for this consultation. We appreciate the opportunity to participate in the care of this pleasant young gentleman. CARMEN/ALYX Seamus Mejia NP / [id number] CC: Divine Castillo II, M.D. Steven Stubblefield, M.D., F.A.C.C.
--- NOTE | ~2016-06-16 | EEG ---
Electroencephalogram [id number] [place]. [address] NAME: MARVEL CHARLES : 71 STATUS : ADM Balbir PAT#: [id number] AGE: 41 ADM/REG DATE : 06/16/16 MR#: [id number] REPORT SERV DATE: 06/17/16 DICTATED BY: NATHANIEL GOEL DATE: 06/17/16 REPORT STATUS : Draft TRANSCRIBED BY: ALYX DATE: 06/17/16 ORDERING PROVIDER: Shannon Chilel [facility]. INTERPRETING PHYSICIAN: Nathaniel Goel M.D. EEG NUMBER: [id number]. REASON FOR EEG: Episodes of syncope. 23 surface electrodes, 10-20 international placement was used. The patient was noted to be awake, drowsy, and asleep throughout the study. The background activity consisted of moderate to higher voltage 9 cycles per second located in the posterior head regions. This alpha range activity attenuated well with the eye opening maneuvers. Slower frequencies in the theta range were noted scattered throughout during drowsiness and light sleep. valving machine operator showed sinus rhythm, rate of approximately 62 beats per minute. Moderate amount of EKG artifact was seen in the referential leads. No paroxysmal or epileptiform activity was seen during this study. Slight increase of low-voltage. Fast activity was seen during drowsiness. No asymmetry was noted. IMPRESSION: THIS EEG IS WITHIN NORMAL RANGE FOR AN AWAKE AND DROWSY STATES. PHOTIC STIMULATION DID NOT BRING OUT ADDITIONAL ABNORMALITIES. NO SIGNIFICANT ASYMMETRY OF CEREBRAL ACTIVITY WAS NOTED. NOTE, NORMAL THOUGH EEG DOES NOT EXCLUDE DIAGNOSIS OF SEIZURE DISORDER. CLINICAL CORRELATION IS RECOMMENDED. JAYDE/ALYX Nathaniel Goel MD / [id number] CC: Divine Tierney II, M.D.
--- NOTE | ~2016-06-16 | OP ---
Record Of Operation [facility] [address] [place]. [address] NAME: MARVEL CHARLES : 71 STATUS : DIS IN PAT#: [id number] AGE: 41 ADM/REG DATE : 06/16/16 MR#: [id number] REPORT SERV DATE: 06/20/16 DICTATED BY: JAMES PRUETT DATE: 06/20/16 REPORT STATUS : Draft TRANSCRIBED BY: MODL DATE: 06/20/16 DATE OF PROCEDURE: 06/20/2016 REFERRING PHYSICIAN: James Mehta MD. PROCEDURE: Internal clinical research monitor INDICATION FOR PROCEDURE: Syncope, previous cryptogenic TIA and suspected atrial fibrillation. Negative neurologic workup. DESCRIPTION OF PROCEDURE: After informed consent was obtained, the patient was taken in a fasting state to the cardiac short-stay unit. Conscious sedation was obtained using intravenous Versed and fentanyl. After appropriate mapping, the left sternal fourth intercostal region was prepped and draped in a sterile fashion. A 1 cm incision was made in the parasternal area using the LINQ Insertion Tool. The LINQ Insertion Tool was then used for blunt dissection to create an appropriate sized pocket for the LINQ device and rotated it to 180 degrees. The device was then inserted in to the pocket. The serial number [id number] device was then determined to be functioning appropriately with R waves measured at 0.22 mV. The device pocket and incision sites were then closed appropriately using Steri Strips. The LINQ device was programmed appropriately for the patient's clinical condition before leaving the hospital. COMPLICATIONS: There were no apparent complications. CONCLUSION: Successful LINQ internal clinical research monitor implantation. ALBERTO James Pruett M.D., [facility] / [id number] CC: Divine Castillo II, M.D. Steven Stubblefield, M.D., F.A.C.C.
--- NOTE | ~2016-06-16 | HP ---
History And Physical [place] [address] [facility] [place]. [address] NAME: MARVEL CHARLES : 71 STATUS : ADM Balbir PAT#: [id number] AGE: 41 ADM/REG DATE : 06/16/16 MR#: [id number] REPORT SERV DATE: 06/17/16 DICTATED BY: DELILAH JOHNSON DATE: 06/17/16 REPORT STATUS : Draft TRANSCRIBED BY: MODL DATE: 06/17/16 DATE OF ADMISSION: 06/16/2016 CHIEF COMPLAINT: Passed out. HISTORY OF PRESENT ILLNESS: The patient is a 41-year-old male with past medical history of GI bleed and [place] spotted fever at age 17, who had recent admission for possible stroke requiring tPA, ICU admission, workup was negative, to have continued outpatient workup with outpatient Holter to see Dr. Mehta on 06/17. However, today on Friday the patient was doing his activities and had another passing out episodes. The patient reports that since his TIA workup and even approximately three weeks prior to this he has been significantly weaker and progressively decreased ability to do his regular activity where he is typically very active. He has also noted that he has gained some amount of weight which he has had difficult time losing which is atypical for him during the winter and summer seasons. Passing out episode has scared the patient and family as this is a repeat episode that this has happened, was essentially unprovoked. The patient declines having recalling any head trauma during this, but does have significant headache that starts at occiput and radiates to the front of his head, quality is moderate to severe pressure type and has also been described sometimes at the worst headache he has had to emergency room, but currently denies this. Symptoms are worsened with changing positions and relieved at rest. The patient is nonorthostatic and the patient did previously have tingling with similar symptoms at last hospitalization prompting the tPA but this is not currently present. ADDITIONAL REVIEW OF SYSTEMS: A 10-point review of systems was negative except for that noted in the HPI. PAST MEDICAL HISTORY: GI bleed in 2013 with hemorrhoids, DJD, UTIs, prostatitis, multiple episodes seen by Dr. Boyd, and [place] spotted fever at age 17. FAMILY HISTORY: Family history of [place] followed by Dr. Mehta. No surgeries. 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 Does no smoking, alcohol, or illicits, but does use smokeless tobacco. with children. ALLERGIES: PENICILLIN AND STATINS CAUSE MUSCLE CRAMPING. HOME MEDICATIONS: Aspirin and multivitamin. PHYSICAL EXAMINATION: VITAL SIGNS: The patient's blood pressure 139/75, temperature 96.9, pulse 83, respirations 19, O2 saturation 99%. GENERAL: Mild discomfort, well developed, well nourished. EYES: No scleral icterus. EOMI. ENT: Large neck. Nares patent. Tongue midline. RESPIRATORY: Clear to auscultation. No wheezes or rales. History And Physical [address] [address] NAME: MARVEL CHARLES : 71 STATUS : ADM Balbir PAT#: [id number] AGE: 41 ADM/REG DATE : 06/16/16 MR#: [id number] REPORT SERV DATE: 06/17/16 DICTATED BY: DELILAH JOHNSNO DATE: 06/17/16 REPORT STATUS : Draft TRANSCRIBED BY: ALYX DATE: 06/17/16 CV: Regular rate. No rubs or gallops. Cap refill less than 2 seconds. No pedal edema. GI: Soft, nontender, nondistended. Bowel sounds positive. No hepatomegaly. Negative rebound. : Deferred. Musculoskeletal: Moves all extremities x4. NECK: Supple without JVD. Also no meningeal signs reported. There are no meningeal pain reproducible. SKIN: Warm and dry. LYMPH: No cervical or supraclavicular lymphadenopathy. HEME: No bleeding or bruising. NEURO: Alert and oriented. Moves all extremities x4. Range of motion of the neck still preserved. Sensations still preserved in all 4 extremities with symmetrical strength. Gait not tested at this time as the patient does have symptomatically worsened headache when changing from lying to sitting position. Orthostatics negative. Tilts negative. PSYCH: Appropriate mood and affect. EKG rate 78, QTc 426, normal sinus rhythm. Brain without contrast unremarkable. No acute intracranial pathology. BMP grossly within normal limits. Calcium mildly decreased at 8.4, troponin negative. CBC grossly within normal limits. INR 0.9. ASSESSMENT AND PLAN: 1. Syncope. 2. Severe headache. 3. Degenerative joint disease. 4. Azotemia. 5. Recent abnormal LFTs. 6. History of [place] spotted fever. 7. Abnormal cortisol history. 8. Questionable Obstructive sleep apnea. PLAN: 1. For syncope, repeat episode. Recently was worked up for stroke workup including TPI and ICU admission. Has no tingling symptoms at this time. Head CT negative. Has significant headache. We will check a.m. cortisol as the patient has had history of low cortisol levels, orthostatics, currently within normal limits. I have stopped statin secondary to myalgias. No clear etiology of syncope, was to have additional cardiac workup with Dr. Mehta tomorrow with Holter. However, unfortunately the patient has had repeat episode of passing out. Denied any chest pain or arrhythmia type palpations prior to this. Has had additional extensive workup by most recent stay. Will consult Cardiology, Dr. Mehta and Neurology as the patient has significant headache with this. 2. For severe headache, inappropriately painful starting at occiput. We will check ESR, cortisone, additionally had RPR, HIV, hepatitis panel for completeness. Continue supportive treatment at this time neuro evaluation. Has also had EEG in the past. 3. Degenerative joint disease p.r.n. 4. Azotemia, IV fluids. 5. Recent abnormal LFTs. This was thought secondary to statins as the patient did have History And Physical [address] [address] NAME: MARVEL CHARLES : 71 STATUS : ADM Balbir PAT#: [id number] AGE: 41 ADM/REG DATE : 06/16/16 MR#: [id number] REPORT SERV DATE: 06/17/16 DICTATED BY: DELILAH JOHNSON DATE: 06/17/16 REPORT STATUS : Draft TRANSCRIBED BY: MODL DATE: 06/17/16 myopathy at that time which has stopped. Ultrasound liver done at [facility] on Friday records ordered and pending. 6. History of [place] spotted fever. Check titers. Denies any recent tick bites. 7. Abnormal cortisol level noted in prior admission with GI bleed. We will check a.m. cortisol. Consider steroids if abnormal. 8. Questionable obstructive sleep apnea. The patient has had weight gain with increased enlarging of neck. We will check a.m. ABG. Consider outpatient sleep study. DISPOSITION: Pending findings above in cardiac and neuro evaluation. PLAN: Discussed with the patient and family at bedside who are agreeable to continue to proceed. DDN/MODL Delilah Johnson MD / [id number] CC: Divine Tierney II, M.D.
--- NOTE | ~2016-06-16 | CN ---
Consultation Report [facility] [address] [place]. [address] NAME: MARVEL CHARLES : 71 STATUS : ADM Blabir PAT#: [id number] AGE: 41 ADM/REG DATE : 06/16/16 MR#: [id number] REPORT SERV DATE: 06/17/16 DICTATED BY: SHAVON GALLARDO DATE: 06/17/16 REPORT STATUS : Draft TRANSCRIBED BY: MODL DATE: 06/17/16 NEUROLOGY CONSULTATION DATE OF CONSULTATION: 06/17/2016 REASON FOR CONSULTATION: Syncopal episode with collapse. HOSPITALIST: Dr. Roseanna Simental. HISTORY OF PRESENT ILLNESS: The patient is a 41-year-old male, who had a syncopal episode yesterday afternoon. According to the patient's , he was upstairs prior to the event. She saw him come down the stairs and take a few steps on the main floor and fall down to his knees and pass out. He was only unconscious for approximately three to five seconds and he woke up talking. According to the patient, he has been experiencing an extreme amount of fatigue since 04/03/2016. He is tired "all the time". He will come home after work and go to bed at 05:00 p.m. This is very unusual for him. He states that, he has also gained some weight over the last couple of months. When questioned more extensively, he states that he snores during the night and his feels, he does not get good quality sleep. The patient mentions that, he has "sinus headaches in the spring and in the fall". These headaches are unilateral and they are usually over one eye, particularly the right eye and are pulsatile. He denies any photophobia or phonophobia. He denies any scotomas or nausea and vomiting. These headaches are worse when he sits up or when he stands. Many times, he feels faint, like he is going to pass out. PAST MEDICAL HISTORY: GI bleed, [place] spotted fever at the age of [age] years old, hemorrhoid, DJD, UTI, prostatitis, syncopal episodes, and "sinus headaches". PAST SURGICAL HISTORY: Right shoulder surgery, right total knee arthroplasty, and right wrist surgery. HOME MEDICATION: List includes an aspirin 81 mg daily and multivitamin daily. ALLERGIES: PENICILLIN ANS STATINS. SOCIAL HISTORY: The patient is . He has two children. 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 He does not smoke, drink, alcohol, or use illicits. FAMILY HISTORY: The patient's mother is alive. She is sixty [age] years old and she is relatively healthy. His father at the age of sixty one from an MD. He has one sister who is healthy. REVIEW OF SYSTEMS: Please refer to HPI. Consultation Report [address] [place]. [address] NAME: MARVEL CHARLES : 71 STATUS : ADM Balbir PAT#: [id number] AGE: 41 ADM/REG DATE : 06/16/16 MR#: [id number] REPORT SERV DATE: 06/17/16 DICTATED BY: SHAVON GALLARDO DATE: 06/17/16 REPORT STATUS : Draft TRANSCRIBED BY: ALYX DATE: 06/17/16 PHYSICAL EXAMINATION: GENERAL: The patient is a 41-year-old male, who stands 5 feet 9 inches tall and weighs 248 pounds. He is afebrile. VITAL SIGNS: Heart rate 85, respiratory rate 16, O2 saturations on room air 100%, blood pressure 99/55. NEURO: The patient is alert. He is oriented x4, pleasant, communicates appropriately, however he does appear to be in moderate discomfort. Speech is clear. Language fluent. Cranial nerves II through XII are intact. Vision via confrontation full in both nesbitt. There is no dysmetria, tremor. Pronator drift, upper extremity strength is 5/5. Upper DTRs 1+ bilaterally. No reported sensory deficits. Lower extremity strength is 5/5. Lower DTRs 2+ bilaterally. Downgoing toes. No reported sensory deficits. He can get out of the bed. He can ambulate without any ataxia. He has good locomotion. Romberg negative. NECK: No carotid bruits, JVD, or thyromegaly. CHEST: Lung sounds clear. CARDIAC: Regular rate and rhythm. LABORATORY DATA: CBC is normal. BMP normal. Folate 10.9, B12 685, vitamin D low at 122, testosterone is 196. CT of the brain, no acute changes. ASSESSMENT/PLAN: 1. Syncopal episode with collapse, etiology unknown. This is not the first syncopal episode the patient has had. The patient will undergo an MRI of the brain without gadolinium and MRV and an MRA of the head and neck. He will have an EEG. The staff will do orthostatic vital signs every shift, waiting three minutes between position changes and recording the blood pressure and heart rate. Further lab work will be checked to include a TSH, free T3, A1c, and fasting lipid panel. 2. Postural headache. The patient's IV fluids will be increased to 100 mL/h. The patient could possibly be having migraines. He is still having pain and rating it as 7/10. He will be given IV Depakote 250 mg plus IV Toradol 30 mg. 3. Testosterone deficiency. The patient will follow up with his PCP in regard to this. 4. Probable obstructive sleep apnea. An outpatient sleep study will be scheduled for the patient. Thank you again for including us in consultation. We will continue to follow with you. MAMI/ALYX ROSALIA Hearn- / [id number] CC: Consultation Report [address] [address] NAME: MARVEL CHARLES : 71 STATUS : ADM Balbir PAT#: [id number] AGE: 41 ADM/REG DATE : 06/16/16 MR#: [id number] REPORT SERV DATE: 06/17/16 DICTATED BY: SHAVON GALLARDO DATE: 06/17/16 REPORT STATUS : Draft TRANSCRIBED BY: ALYX DATE: 06/17/16 Divine Tierney II, M.D.
[2016-06-16 23:27] LABS: BASOPHILS 0.7 %; BASOPHILS ABSOLUTE 0.05 10/3/uL (0.0-0.16); HEMATOCRIT 40.8 % (40.0-51.0); IMMATURE GRANULOCYTES 0.4 %; IMMATURE GRANULOCYTES ABSOLUTE 0.03 10/3/uL (0.0-0.11); LYMPHOCYTES 33.8 %; LYMPHOCYTES ABSOLUTE 2.28 10/3/uL (0.67-4.30); MEAN CORPUS HGB CONC 36.8 g/dL (32.0-36.0); MEAN CORPUSCULAR HEMOGLOB 31.5 pg (26.0-34.0); MEAN CORPUSCULAR VOLUME 85.7 fL (80-100); MEAN PLATELET VOLUME 9.7 fL (9.2-13.0); MONOCYTES ABSOLUTE 0.74 10/3/uL (0.21-1.20); NEUTROPHILS 51.1 %; NEUTROPHILS ABSOLUTE 3.45 10/3/uL (2.02-8.40); PLATELET COUNT 203 10/3/uL (150-400); RBC DISTRIBUTION WIDTH 12.3 % (12.0-16.0); RED CELL COUNT 4.76 10/6/uL (4.7-6.1); WHITE BLOOD CELLS 6.8 10/3/uL (4.5-10.5)
[2016-06-16 23:28] LABS: MANUAL DIFF NO %
[2016-06-16 23:33] LABS: INTERNATIONAL NORMAL RATI 0.9 UNITS (-)
[2016-06-16 23:34] LABS: PARTIAL THROMBO TIME 31.9 SEC (22.5-37.2)
[2016-06-16 23:43] LABS: CALCIUM, SERUM 8.4 MG/DL (8.5-10.4); CHEST PAIN PROFILE TAT 0 Hrs 20 Mins; CHLORIDE, SERUM 109 MMOL/L (96-112); CO2 (CARBON DIOXIDE) 27 MMOL/L (24-34); CREATININE 1.04 MG/DL (0.70-1.30); GFR AFRICAN AMERICAN 101 ML/MIN (>=60); GFR NON AFRICAN AMERICAN 88 ML/MIN (>=60); SODIUM, SERUM 144 MMOL/L (135-148); TROPONIN I <0.02 NG/ML (<0.05)
[2016-06-16 23:47] LABS: BUN (BLOOD UREA NITROGEN) 20 MG/DL (6-23); GLUCOSE, SERUM 91 MG/DL (60-99); RBC MORPHOLOGY NORM (NORMAL)
[~2016-06-16 23:49] MED LIST changes: +ASAB PO; +DIL2TAB PO; +IBU800 PO; +LIPITOR40; +LIPITOR40 PO; +PCET PO; +RHINOCORT INH; +THERGRANM PO
[2016-06-17] MEDS ORDERED: ASAB PO (01:33)
[2016-06-17] MEDS ORDERED: THERGRANM PO (01:33)
[2016-06-17 02:31] LABS: SED RATE 3 MM/HR (0-15)
[2016-06-17 05:24] LABS: ALLENS TEST Pos; BE (BASE EXCESS) -0.1 MEQ/L (0 +/- 2.5); CARBOXYHEMOGLOBIN 0.7 % (0-3); HCO3 (ACTUAL BICARBONATE) 25.8 MEQ/L (23-27); HEMOBLOGIN CONTENT 14.5 G/DL (14-18); INSTRUMENT SERIAL # 8083; METHEMOGLOBIN 0.2 % (0-3); O2 CONTENT 19.5 VOL% (18-24); OPERATOR ID 18978; PCO2 (CO2 TENSION) 47 MMHG (35-45); PO2 (O2 TENSION) 85 MMHG (79-93); SAMPLE Arterial; pH 7.36 (7.37-7.43)
[2016-06-17 05:51] LABS: BASOPHILS 0.5 %; BASOPHILS ABSOLUTE 0.03 10/3/uL (0.0-0.16); EOSINOPHILS 2.9 %; EOSINOPHILS ABSOLUTE 0.17 10/3/uL (0.0-0.53); HEMATOCRIT 40.4 % (40.0-51.0); HEMOGLOBIN 14.3 g/dL (13.6-17.8); IMMATURE GRANULOCYTES 0.5 %; IMMATURE GRANULOCYTES ABSOLUTE 0.03 10/3/uL (0.0-0.11); LYMPHOCYTES 31.7 %; LYMPHOCYTES ABSOLUTE 1.86 10/3/uL (0.67-4.30); MEAN CORPUS HGB CONC 35.4 g/dL (32.0-36.0); MEAN CORPUSCULAR HEMOGLOB 30.6 pg (26.0-34.0); MEAN CORPUSCULAR VOLUME 86.3 fL (80-100); MEAN PLATELET VOLUME 9.7 fL (9.2-13.0); MONOCYTES 10.7 %; MONOCYTES ABSOLUTE 0.63 10/3/uL (0.21-1.20); NEUTROPHILS 53.7 %; NEUTROPHILS ABSOLUTE 3.15 10/3/uL (2.02-8.40); PLATELET COUNT 190 10/3/uL (150-400); RBC DISTRIBUTION WIDTH 12.5 % (12.0-16.0); RED CELL COUNT 4.68 10/6/uL (4.7-6.1); WHITE BLOOD CELLS 5.9 10/3/uL (4.5-10.5)
[2016-06-17 06:00] LABS: MANUAL DIFF NO %
[2016-06-17 06:28] LABS: A/G RATIO 1.2 (0.7-1.9); ALBUMIN 3.4 G/DL (3.5-5.0); ALKALINE PHOSPHATASE 62 U/L (45-117); CALCIUM, SERUM 8.5 MG/DL (8.5-10.4); CHLORIDE, SERUM 109 MMOL/L (96-112); CO2 (CARBON DIOXIDE) 26 MMOL/L (24-34); CREATININE 0.85 MG/DL (0.70-1.30); GFR AFRICAN AMERICAN 124 ML/MIN (>=60); GFR NON AFRICAN AMERICAN 107 ML/MIN (>=60); GLOBULIN 2.9 G/DL (2.5-4.1); GLUCOSE, SERUM 93 MG/DL (60-99); SGOT(AST) 19 U/L (5-40); SGPT(ALT) 33 U/L (5-65); SODIUM, SERUM 145 MMOL/L (135-148); TOTAL BILIRUBIN 0.3 MG/DL (0-1.2); TOTAL PROTEIN 6.3 G/DL (6.0-8.5)
[2016-06-17 06:29] LABS: BUN (BLOOD UREA NITROGEN) 16 MG/DL (6-23); FOLATE 10.9 NG/ML (>5.2)
[2016-06-17 07:03] LABS: SED RATE 3 MM/HR (0-15)
[2016-06-17 09:20] LABS: DIRECT BILIRUBIN < 0.1 MG/DL (0.0-0.4); INDIRECT BILIRUBIN(NOT ORDER) 0.2 MG/DL (0.1-0.9)
[2016-06-17 11:46] LABS: CHOLESTEROL 127 MG/DL (< 200); FREE T4 1.21 NG/DL (0.76-1.46); TRIGLYCERIDE 76 MG/DL (< 150)
[2016-06-17 11:47] LABS: CHOL/HDL RATIO(NOT ORDER) 2.3 (0-5); HDL CHOLESTEROL 56 MG/DL (> 39); LDL CHOLESTEROL 56 MG/DL (< 130); NON-HDL CHOLESTEROL 71 MG/DL (< 160)
[2016-06-17 14:37] LABS: ASCORBIC ACID (UR NOT ORDER) NEG (NEG); BILIRUBIN, URINE NEGATIVE (NEG); KETONE, URINE NEGATIVE (NEG); LEUKOCYTE ESTERASE(NOT OR NEG (NEG); WBC (NOT ORDERED) (RFLEX) < 1 (0-5)
[2016-06-18 04:14] LABS: ALBUMIN 3.2 G/DL (3.5-5.0); ALKALINE PHOSPHATASE 63 U/L (45-117); BUN (BLOOD UREA NITROGEN) 14 MG/DL (6-23); CALCIUM, SERUM 8.1 MG/DL (8.5-10.4); CHLORIDE, SERUM 107 MMOL/L (96-112); CO2 (CARBON DIOXIDE) 26 MMOL/L (24-34); CREATININE 0.86 MG/DL (0.70-1.30); GFR AFRICAN AMERICAN 123 ML/MIN (>=60); GFR NON AFRICAN AMERICAN 106 ML/MIN (>=60); GLUCOSE, SERUM 90 MG/DL (60-99); PHOSPHORUS, SERUM 3.8 MG/DL (2.5-4.5); POTASSIUM, SERUM 3.9 MMOL/L (3.5-5.3); SGOT(AST) 18 U/L (5-40); SGPT(ALT) 35 U/L (5-65); SODIUM, SERUM 142 MMOL/L (135-148); TOTAL BILIRUBIN 0.6 MG/DL (0-1.2); TOTAL PROTEIN 5.8 G/DL (6.0-8.5)
[2016-06-18 04:30] LABS: DIRECT BILIRUBIN < 0.1 MG/DL (0.0-0.4); INDIRECT BILIRUBIN(NOT ORDER) 0.5 MG/DL (0.1-0.9)
[2016-06-18 09:16] LABS: ANA TITER <1:40 TITER
[2016-06-19 06:54] LABS: BASOPHILS 0.5 %; BASOPHILS ABSOLUTE 0.03 10/3/uL (0.0-0.16); EOSINOPHILS 1.7 %; HEMATOCRIT 38.3 % (40.0-51.0); IMMATURE GRANULOCYTES 0.3 %; IMMATURE GRANULOCYTES ABSOLUTE 0.02 10/3/uL (0.0-0.11); LYMPHOCYTES 34.5 %; LYMPHOCYTES ABSOLUTE 2.01 10/3/uL (0.67-4.30); MEAN CORPUS HGB CONC 36.6 g/dL (32.0-36.0); MEAN CORPUSCULAR HEMOGLOB 31.3 pg (26.0-34.0); MEAN CORPUSCULAR VOLUME 85.5 fL (80-100); MEAN PLATELET VOLUME 9.8 fL (9.2-13.0); MONOCYTES 9.3 %; MONOCYTES ABSOLUTE 0.54 10/3/uL (0.21-1.20); NEUTROPHILS 53.7 %; NEUTROPHILS ABSOLUTE 3.12 10/3/uL (2.02-8.40); PLATELET COUNT 182 10/3/uL (150-400); RBC DISTRIBUTION WIDTH 12.1 % (12.0-16.0); RED CELL COUNT 4.48 10/6/uL (4.7-6.1); WHITE BLOOD CELLS 5.8 10/3/uL (4.5-10.5)
[2016-06-19 06:55] LABS: MANUAL DIFF NO %
[2016-06-19 07:12] LABS: CALCIUM, SERUM 8.3 MG/DL (8.5-10.4); CHLORIDE, SERUM 110 MMOL/L (96-112); CO2 (CARBON DIOXIDE) 26 MMOL/L (24-34); CREATININE 0.79 MG/DL (0.70-1.30); GFR AFRICAN AMERICAN 127 ML/MIN (>=60); GFR NON AFRICAN AMERICAN 110 ML/MIN (>=60); GLUCOSE, SERUM 93 MG/DL (60-99); POTASSIUM, SERUM 3.7 MMOL/L (3.5-5.3); SODIUM, SERUM 145 MMOL/L (135-148)
[2016-06-19 07:13] LABS: BUN (BLOOD UREA NITROGEN) 10 MG/DL (6-23)
[2016-06-20 05:41] LABS: BUN (BLOOD UREA NITROGEN) 11 MG/DL (6-23); CALCIUM, SERUM 8.1 MG/DL (8.5-10.4); CHLORIDE, SERUM 108 MMOL/L (96-112); CO2 (CARBON DIOXIDE) 26 MMOL/L (24-34); CREATININE 0.79 MG/DL (0.70-1.30); GFR AFRICAN AMERICAN 127 ML/MIN (>=60); GFR NON AFRICAN AMERICAN 110 ML/MIN (>=60); GLUCOSE, SERUM 85 MG/DL (60-99); POTASSIUM, SERUM 3.8 MMOL/L (3.5-5.3); SODIUM, SERUM 142 MMOL/L (135-148)
[2016-06-20] MEDS ORDERED: VITD PO (17:42)
[2016-06-21 19:30] LABS: LYME AB SCREEN RESULT Negative (NEG)
[2016-06-22 14:56] LABS: ROCKY MTN SPOTTED FEVER AB IGG <1:64 (LTD64); ROCKY MTN SPOTTED FEVER AB IGM <1:64 (LTD64)
== END 2016-06-20 18:22 | disposition home or self-care (01) | DRG 262 ==
LOC: ER 23:49 → 5NO 23:59
PROVIDERS: Hospitalist; Internal Medicine; Specialist; Student in an Organized Health Care Education/Training Program
PROC: 0JH632Z Insertion of Monitoring Device into Chest Subcutaneous Tissue and Fascia, Percutaneous Approach (ICD-10-PCS; principal; 2016-06-20)
PROC: 009U3ZX Drainage of Spinal Canal, Percutaneous Approach, Diagnostic (ICD-10-PCS; 2016-06-20)
DX: R55 Syncope and collapse (principal); M50.222 Other cervical disc displacement at C5-C6 level; E55.9 Vitamin D deficiency, unspecified; R51 Headache; G47.33 Obstructive sleep apnea (adult) (pediatric); R79.89 Other specified abnormal findings of blood chemistry; M47.812 Spondylosis without myelopathy or radiculopathy, cervical region; M50.223 Other cervical disc displacement at C6-C7 level; Z79.82 Long term (current) use of aspirin; Z96.651 Presence of right artificial knee joint; Z88.0 Allergy status to penicillin; Z86.73 Personal history of transient ischemic attack (TIA), and cerebral infarction without residual deficits
CPT/HCPCS: 33282; 36600; 62284; 70450; 70544; 70548; 70551; 71020; 72125; 72128; 72131; 72192; 72270; 78452; 80048; 80053; 80061; 80069; 80076; 81001; 82248; 82306; 82533; 82607; 82746; 82805; 83036; 83605; 83735; 84403; 84439; 84443; 84484; 85025; 85610; 85652; 85730; 86039; 86592; 86618; 86757; 86757-59; 87389; 93005; 93017; 95819; 96374; 96375; 99285; A9270-GY; A9502; A9577; C1764; J0834; J1885; J2250; J2405; J3010

== ENCOUNTER 2016-08-07 20:10 | Observation (INO) | payer BC ==
--- NOTE | ~2016-08-07 | DS ---
Discharge Summary [facility] [address] [place]. [address] NAME: MARVEL CHARLES : 71 STATUS : DIS Balbir PAT#: [id number] AGE: 41 ADM/REG DATE : 08/07/16 MR#: [id number] REPORT SERV DATE: 08/09/16 DICTATED BY: MARTY HOWARD DATE: 08/09/16 REPORT STATUS : Draft TRANSCRIBED BY: MODL DATE: 08/09/16 ADMISSION DATE: 08/07/2016 DISCHARGE DATE: 08/08/2016 DISCHARGE DIAGNOSES: 1. Temporary left upper extremity, left facial paresthesias associated with severe occipital headache. 2. Previous hospitalizations for syncope, confusion, left upper extremity weakness poorly explained. 3. Previous [place] spotted fever, age 17. 4. History of low vitamin D. 5. History of obstructive sleep apnea. HISTORY: This patient had been hospitalized at [facility] in May 2016 with loss of consciousness, confusion, left-sided weakness, was given tPA, had an otherwise negative workup. Was back in the hospital in June 2016 with again loss of consciousness, at that time, associated with severe headache, no clear etiology was found. A loop recorder was implanted. On 08/07/ p.m., he suddenly felt a spinning sensation, things were out of focus, then severe occipital headache, and in the left upper extremity, painful tingling feeling "like when your foot goes to sleep." He came to the emergency room. States later he had some left- sided facial odd sensations, this resolved headache finally, left upper extremity paresthesias resolved. CT of the neck and brain done on 08/07/2016 unremarkable. EKG normal. Chest x-ray showing shallow size respiration, otherwise, unremarkable. A loop recorder was interrogated. No abnormalities were found. The patient was ambulatory. We did ask for Neurology to see him and give an impression, they did not get to him on 08/08/2016, and the patient was unwilling to stay any longer and signed out against medical advice. He was very pleasant about it. He has some very important family issues. I did not prescribe any new medications for the patient. DICTATED BY: Divine Antunez/ALYX Marty Howard M.D. / [id number] Discharge Summary [place] [address] [address] NAME: MARVEL CHARLES : 71 STATUS : DIS Balbir PAT#: [id number] AGE: 41 ADM/REG DATE : 08/07/16 MR#: [id number] REPORT SERV DATE: 08/09/16 DICTATED BY: MARTY HOWARD DATE: 08/09/16 REPORT STATUS : Draft TRANSCRIBED BY: ALYX DATE: 08/09/16 CC: Divine Antunez II, M.D. Steven Stubblefield, M.D., F.A.C.C. Grazyna Cooney M.D.
--- NOTE | ~2016-08-07 | HP ---
History And Physical [place] [address] [facility] [place]. [address] NAME: MARVEL CHARLES : 71 STATUS : ADM Balbir PAT#: [id number] AGE: 41 ADM/REG DATE : 08/07/16 MR#: [id number] REPORT SERV DATE: 08/08/16 DICTATED BY: KRISTAN KUMARI DATE: 08/08/16 REPORT STATUS : Draft TRANSCRIBED BY: MODL DATE: 08/08/16 DATE OF ADMISSION: 08/07/2016 CHIEF COMPLAINT: A 41-year-old male with recurrent neurological symptoms and syncope, now presenting this evening with severe vertigo and left-sided paresthesias. HISTORY OF PRESENTING ILLNESS: The patient's history was obtained through careful interview with the patient and , coupled with review of [employer] [facility] [employer] [employer] medical records. The patient was in usual state of health when about 6:30 on the evening of admission, he developed sudden dizziness that he describes as vertigo. He had a sensation as if the room was spinning and had to sit down. He had nausea, but no vomiting. There was no lightheadedness with this. Then, within about a half hour, he developed left arm pain with paresthesias, an aching quality, 6/10 severity, and he also felt these paresthesias through his left cheek and a bit in his left leg. He developed a headache. He has had chronic intermittent headaches, but this is worse than he has experienced before. It was felt at the base of his skull and then radiating throughout his head. He describes it as "my head is fixing to explode," 10/10 severity. No double vision. No blurry vision. No dysarthria. No confusion. No hemiparesis. No shortness of breath. No fevers or chills. No cough. REVIEW OF SYSTEMS: Otherwise, a 14-point review of systems was obtained and was negative. PAST MEDICAL HISTORY: 1. Stroke/transient ischemic attack/neurological evaluations. The patient actually had tPA given to him earlier in 2017 during one of these episodes. He has now been followed outpatient by Dr. Cooney. 2. [place] spotted fever when he was 17 years old. 3. Prostatitis. 4. Headaches. 5. Vitamin D deficiency. 6. GI bleed, seen by Dr. Heredia. 7. Nephrolithiasis. 8. Hypotestosteronism. PAST SURGICAL HISTORY: 1. Right shoulder surgery. 2. Right knee surgery. 3. Right wrist surgery. 4. Lumbar spine surgery under the care of Dr. Marin, 2010. History And Physical [address] [place]. [address] NAME: MARVEL CHARLES : 71 STATUS : ADM Balbir PAT#: [id number] AGE: 41 ADM/REG DATE : 08/07/16 MR#: [id number] REPORT SERV DATE: 08/08/16 DICTATED BY: KRISTAN KUMARI DATE: 08/08/16 REPORT STATUS : Draft TRANSCRIBED BY: ALYX DATE: 08/08/16 ALLERGIES: PENICILLIN AND STATINS. SOCIAL HISTORY: No tobacco abuse. No alcohol abuse. Lives in [place], [place], with his . They have two children. 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 FAMILY HISTORY: Father at 61 years of age of a heart attack. Grandfather with heart failure. Strong family history of cancer and diabetes. CURRENT MEDICATIONS: Include aspirin 81 mg p.o. daily, Z-Mp, vitamin D, Mucinex, multivitamins. PHYSICAL EXAMINATION: VITAL SIGNS: Temperature 97.4, pulse 76, blood pressure 126/83, respiratory rate 22, O2 saturation 97% on room air. GENERAL: A pleasant, cooperative male, in no evidence of distress at this time. His headache has been easing off gradually. NEUROLOGICAL: Cranial nerves 2 through 12 are intact and symmetrical. No current nystagmus. The patient has 5/5 strength in upper and lower extremities that is symmetrical. His sensation to light touch is intact throughout currently. HEENT: Pupils equal, round, and reactive to light. No conjunctival pallor. No scleral icterus. Nares are patent. Oropharynx is clear of obstruction. Moist mucous membranes. NECK: Trachea midline. No thyromegaly. LYMPH: No cervical lymphadenopathy. No supraclavicular lymphadenopathy. RESPIRATORY: Clear to auscultation at bases. No wheezes, rales, or rhonchi. Normal respiratory effort. CARDIOVASCULAR: Regular rate and rhythm. No murmurs, rubs, or gallops. No extremity edema is appreciated. ABDOMEN: Soft, nontender, nondistended. Normal bowel sounds auscultated throughout. No hepatosplenomegaly. DERMATOLOGICAL: Warm and dry extremities. No pallor, no cyanosis. PSYCHIATRIC: Normal affect. Good mood. Alert and oriented x3. LABORATORY DATA: White blood cell count 6.8, hemoglobin 15, hematocrit 41 platelets 207. Sodium 136, potassium 3.6, chloride 108, bicarb 25, BUN 14, creatinine 1.0, glucose 84. Troponin negative. INR 1.0. Liver enzymes, within normal limits. STUDIES: 1. Chest x-ray by my own evaluation shows no acute cardiopulmonary process. 2. EKG by my own evaluation shows sinus rhythm. No major abnormalities. 3. CT scan of the brain without contrast shows no acute intracranial process. ASSESSMENT AND PLAN: 1. Left paresthesias with vertigo. The patient has had an extensive stroke workup earlier in 2017. Question possible atypical migraine? We will obtain Neurology consult with Dr. Cooney. History And Physical [address] [address] NAME: MARVEL CHARLES : 71 STATUS : ADM Balbir PAT#: [id number] AGE: 41 ADM/REG DATE : 08/07/16 MR#: [id number] REPORT SERV DATE: 08/08/16 DICTATED BY: KRISTAN KUMARI DATE: 08/08/16 REPORT STATUS : Draft TRANSCRIBED BY: ALYX DATE: 08/08/16 2. Headache. KPL/MODL Kristan Kumari M.D. / [id number] CC: Divine Vera M.D. John Tapp II, M.D.
[~2016-08-07 20:10] MED LIST changes: +VITD PO
[2016-08-07] MEDS ORDERED: MUCINEX600 MG PO (20:50)
[2016-08-07] MEDS ORDERED: VITAMIN D31000 UNIT PO (20:51)
[2016-08-07] MEDS ORDERED: Z-PAK PO (20:51)
[2016-08-07] MEDS ORDERED: HALF81 PO (20:51)
[2016-08-07] MEDS ORDERED: MULTIVIT/MIN PO (20:51)
[2016-08-07 21:11] LABS: BASOPHILS 0.6 %; BASOPHILS ABSOLUTE 0.04 10/3/uL (0.0-0.16); EOSINOPHILS 1.5 %; ER CBC TAT 0 Hrs 07 Mins; HEMATOCRIT 40.6 % (40.0-51.0); HEMOGLOBIN 14.7 g/dL (13.6-17.8); IMMATURE GRANULOCYTES 0.4 %; IMMATURE GRANULOCYTES ABSOLUTE 0.03 10/3/uL (0.0-0.11); LYMPHOCYTES 28.4 %; LYMPHOCYTES ABSOLUTE 1.92 10/3/uL (0.67-4.30); MEAN CORPUS HGB CONC 36.2 g/dL (32.0-36.0); MEAN CORPUSCULAR HEMOGLOB 30.9 pg (26.0-34.0); MEAN CORPUSCULAR VOLUME 85.3 fL (80-100); MEAN PLATELET VOLUME 9.6 fL (9.2-13.0); MONOCYTES 7.1 %; MONOCYTES ABSOLUTE 0.48 10/3/uL (0.21-1.20); NEUTROPHILS ABSOLUTE 4.19 10/3/uL (2.02-8.40); PLATELET COUNT 207 10/3/uL (150-400); RED CELL COUNT 4.76 10/6/uL (4.7-6.1); WHITE BLOOD CELLS 6.8 10/3/uL (4.5-10.5)
[2016-08-07 21:12] LABS: MANUAL DIFF NO %
[2016-08-07 21:18] LABS: PARTIAL THROMBO TIME 32.1 SEC (22.5-37.2); PROTIME (NOT ORD) 13.2 SEC (12.0-14.5)
[2016-08-07 21:33] LABS: BUN (BLOOD UREA NITROGEN) 14 MG/DL (6-23); CHLORIDE, SERUM 108 MMOL/L (96-112); CO2 (CARBON DIOXIDE) 25 MMOL/L (24-34); CREATININE 1.01 MG/DL (0.70-1.30); GFR AFRICAN AMERICAN 105 ML/MIN (>=60); GFR NON AFRICAN AMERICAN 91 ML/MIN (>=60); GLUCOSE, SERUM 84 MG/DL (60-99); POTASSIUM, SERUM 3.6 MMOL/L (3.5-5.3); SGOT(AST) 27 U/L (5-40); SGPT(ALT) 43 U/L (5-65); SODIUM, SERUM 136 MMOL/L (135-148); TOTAL BILIRUBIN 0.3 MG/DL (0-1.2); TOTAL PROTEIN 6.9 G/DL (6.0-8.5); TROPONIN I <0.02 NG/ML (<0.05)
[2016-08-07 21:34] LABS: A/G RATIO 1.5 (0.7-1.9); ALBUMIN 4.1 G/DL (3.5-5.0); ALKALINE PHOSPHATASE 75 U/L (45-117); CALCIUM, SERUM 9.2 MG/DL (8.5-10.4); GLOBULIN 2.8 G/DL (2.5-4.1)
[2016-08-08 08:09] LABS: BASOPHILS 0.8 %; BASOPHILS ABSOLUTE 0.04 10/3/uL (0.0-0.16); EOSINOPHILS 2.9 %; EOSINOPHILS ABSOLUTE 0.15 10/3/uL (0.0-0.53); HEMATOCRIT 43.2 % (40.0-51.0); HEMOGLOBIN 15.5 g/dL (13.6-17.8); IMMATURE GRANULOCYTES ABSOLUTE 0.05 10/3/uL (0.0-0.11); LYMPHOCYTES ABSOLUTE 1.64 10/3/uL (0.67-4.30); MEAN CORPUS HGB CONC 35.9 g/dL (32.0-36.0); MEAN CORPUSCULAR HEMOGLOB 30.6 pg (26.0-34.0); MEAN CORPUSCULAR VOLUME 85.4 fL (80-100); MEAN PLATELET VOLUME 9.6 fL (9.2-13.0); MONOCYTES ABSOLUTE 0.46 10/3/uL (0.21-1.20); NEUTROPHILS 54.3 %; NEUTROPHILS ABSOLUTE 2.78 10/3/uL (2.02-8.40); PLATELET COUNT 196 10/3/uL (150-400); RBC DISTRIBUTION WIDTH 12.3 % (12.0-16.0); RED CELL COUNT 5.06 10/6/uL (4.7-6.1); WHITE BLOOD CELLS 5.1 10/3/uL (4.5-10.5)
[2016-08-08 08:11] LABS: INTERNATIONAL NORMAL RATI 1.1 UNITS (-); PROTIME (NOT ORD) 14.2 SEC (12.0-14.5)
[2016-08-08 08:12] LABS: MANUAL DIFF NO %; PARTIAL THROMBO TIME 34.2 SEC (22.5-37.2)
[2016-08-08 08:34] LABS: A/G RATIO 1.3 (0.7-1.9); ALBUMIN 3.8 G/DL (3.5-5.0); ALKALINE PHOSPHATASE 74 U/L (45-117); BUN (BLOOD UREA NITROGEN) 12 MG/DL (6-23); CALCIUM, SERUM 8.5 MG/DL (8.5-10.4); CHLORIDE, SERUM 108 MMOL/L (96-112); CHOL/HDL RATIO(NOT ORDER) 3.1 (0-5); CHOLESTEROL 141 MG/DL (< 200); CO2 (CARBON DIOXIDE) 28 MMOL/L (24-34); CPK 290 U/L (0-200); CREATININE 0.79 MG/DL (0.70-1.30); GFR AFRICAN AMERICAN 127 ML/MIN (>=60); GFR NON AFRICAN AMERICAN 110 ML/MIN (>=60); GLOBULIN 2.9 G/DL (2.5-4.1); GLUCOSE, SERUM 78 MG/DL (60-99); HDL CHOLESTEROL 46 MG/DL (> 39); LDL CHOLESTEROL 76 MG/DL (< 130); NON-HDL CHOLESTEROL 95 MG/DL (< 160); POTASSIUM, SERUM 3.9 MMOL/L (3.5-5.3); SGOT(AST) 26 U/L (5-40); SGPT(ALT) 41 U/L (5-65); SODIUM, SERUM 142 MMOL/L (135-148); TOTAL BILIRUBIN 0.6 MG/DL (0-1.2); TOTAL PROTEIN 6.7 G/DL (6.0-8.5); TRIGLYCERIDE 95 MG/DL (< 150); TROPONIN I <0.02 NG/ML (<0.05)
[2016-08-08 16:13] LABS: CPK 251 U/L (0-200); TROPONIN I <0.02 NG/ML (<0.05)
[2016-08-08 16:14] LABS: CK-MB 2.4 NG/ML
== END 2016-08-08 18:09 | disposition home or self-care (01) ==
LOC: ER 20:10 → CDU1 22:34 → CDU2 23:19
PROVIDERS: Hospitalist; Internal Medicine
DX: R55 Syncope and collapse (principal); E55.9 Vitamin D deficiency, unspecified; R51 Headache; G47.33 Obstructive sleep apnea (adult) (pediatric); Z88.0 Allergy status to penicillin; Z79.82 Long term (current) use of aspirin
CPT/HCPCS: 36415; 70450; 70496; 70498; 71010; 80053; 80061; 82550; 82553; 82962; 83036; 83735; 84484; 85025; 85610; 85730; 86850; 86900; 86901; 93005; 96372; 99285; A9270-GY; G0378; Q9967